=== PATIENT | female | born 1990 | race Caucasian/White ===

== ENCOUNTER 2018-07-22 13:11 | Emergency (ER) | payer OTHER ==
[2018-07-22 13:40] VITALS: RESP 18; TEMP 98.6; O2SAT 100
--- NOTE | 2018-07-22 13:45 | C.PDOC ---
History Of Present Illness 28 y/o female patient with no significant medical history presents to the ED with c/o left sided face numbness starting 3 hours [employer]. Patient denies syncope, lightheadedness, dizziness, LOC or any other associated symptoms. Time Seen by Provider: 07/22/18 13:42 Chief Complaint (Nursing): Weakness/Neurological Deficit History Per: Patient History/Exam Limitations: no limitations Onset/Duration Of Symptoms: Hrs (3) Current Symptoms Are (Timing): Still Present Associated Symptoms Preceding Syncopal Episode: denies: Lightheadedness, Vertigo Possible Causative Factor(s): denies: Vertigo, Lightheaded W/Standing - Symptoms Of CVA Character Of Deficits: Face: Weakness Past Medical History Reviewed: Historical Data, Nursing Documentation, Vital Signs Vital Signs: Last Vital Signs Temp 98.6 F 07/22/18 16:05 Pulse 84 07/22/18 16:05 Resp 18 07/22/18 16:05 BP 108/61 07/22/18 16:05 Pulse Ox 100 07/22/18 16:05 - Medical History PMH: No Chronic Diseases Family History: States: No Known Family Hx - Social History Hx Tobacco Use: No Hx Alcohol Use: No Hx Substance Use: No - Immunization History Hx Tetanus Toxoid Vaccination: No Hx Influenza Vaccination: No Hx Pneumococcal Vaccination: No Review Of Systems Constitutional: Negative for: Fever, Chills Cardiovascular: Negative for: Chest Pain Respiratory: Negative for: Shortness of Breath Neurological: Positive for: Numbness (left sided facial numbness). Negative for : Change in Speech, Confusion, Headache, Dizziness Physical Exam - Physical Exam Appears: Non-toxic, No Acute Distress Skin: Warm, Dry Head: Atraumatic, Normacephalic Eye(s): bilateral: PERRL, EOMI Oral Mucosa: Moist Chest: Symmetrical Cardiovascular: Rhythm Regular, No Murmur Respiratory: Normal Breath Sounds, No Rales, No Rhonchi, Other Back: No CVA Tenderness Extremity: Normal ROM Extremity: Bilateral: Atraumatic Neurological/Psych: Oriented x3, Normal Speech, Normal Motor (Motor function 5/ 5.), Other (Decrease sensation to the left side of face. No pronator drift. Alert, no gross focal deficit.) ED Course And Treatment - Laboratory Results Result Diagrams: 07/22/18 13:48 07/22/18 13:48 ECG: Interpreted By Me ECG Rhythm: Sinus Rhythm Interpretation Of ECG: Normal Sinus Rhythm. 81 bpm. Rate From EC O2 Sat by Pulse Oximetry: 100 (RA) Pulse Ox Interpretation: Normal - Other Rad CXR X-Ray: Read By Radiologist Interpretation: IMPRESSION: No focal consolidation, significant pleural effusion, or definite pneumothorax identified. - CT Scan/US CT Head Other Rad Studies (CT/US): Radiology Report Reviewed CT/US Interpretation: FINDINGS: HEMORRHAGE: No intracranial hemorrhage. BRAIN : No mass effect or edema. No atrophy or chronic microvascular ischemic changes.Please note that MRI with diffusion imaging is more sensitive in the detection of acute ischemic event. VENTRICLES: No hydrocephalus. CALVARIUM: Unremarkable. PARANASAL SINUSES: Unremarkable as visualized. No significant inflammatory changes. MASTOID AIR CELLS: Unremarkable as visualized. No inflammatory changes. OTHER FINDINGS: None. IMPRESSION: No acute intracranial pathology identified. Findings discussed with Dr. Damon on at 1:57 p.m. Medical Decision Making Medical Decision Making: Impression: 28 year old female patient with left sided facial numbness Differential Diagnosis included but are not limited to: Rule out Stroke Plan: CT Head EKG Labs CXR 1400: Pending Neurology Consultation -- Reassess and disposition: 1440: Mirna Bey, neurologist on-call was consulted, who recommends cancelling code-stroke. Progress Note: 1548: During re-evaluation, patient states that she feels better and symptoms have resolved. Patient was advised to follow up with PCP and return to the ED, if symptoms worsen or persist. Disposition - Disposition Referrals: Arnol Patten MD [Staff Provider] - Disposition: HOME/ ROUTINE Disposition Time: 16:05 Condition: GOOD Additional Instructions: Return to the ED if symptom persists and call Dr Patten's office for an appointment. Instructions: Paresthesias (DC) Forms: [employer] (Botswanan) - Clinical Impression Clinical Impression: Numbness of face - Scribe Statement The provider has reviewed the documentation as recorded by the Leora Alexis Provider Attestation: All medical record entries made by the Daniaibmarybeth were at my direction and personally dictated by me. I have reviewed the chart and agree that the record accurately reflects my personal performance of the history, physical exam, medical decision making, and the department course for this patient. I have also personally directed, reviewed, and agree with the discharge instructions and disposition.
[2018-07-22 13:54] LABS: BASO # 0.1 K/uL (0.0-0.2); BASO % 0.7 % (0.0-2.0); EOS # 0.1 K/uL (0.0-0.7); HEMOGLOBIN 13.3 g/dL (11.0-16.0); LYMPH # 2.9 K/uL (1.0-4.3); LYMPH % 30.3 % (20.0-40.0); MEAN CELL VOLUME 86.6 fL (81.0-99.0); MEAN CORPUSCULAR HGB CONC 33.5 g/dL (33.0-37.0); MEAN PLATELET VOLUME 9.5 fL (7.2-11.7); MONO # 0.5 K/uL (0.0-0.8); MONO % 5.6 % (0.0-10.0); NEUT % 62.4 % (50.0-75.0); RBC 4.59 Mil/uL (3.80-5.20); RED CELL DISTRIBUTION WIDTH 13.3 % (11.5-14.5); WHITE BLOOD COUNT 9.7 K/uL (4.8-10.8)
[2018-07-22 14:01] LABS: PROTHROMBIN TIME 11.4 SECONDS (9.7-12.2)
--- NOTE | 2018-07-22 14:03 | CT ---
Date of service: 07/22/2018 PROCEDURE: CT HEAD WITHOUT CONTRAST. HISTORY: Code Stroke COMPARISON: None available. TECHNIQUE: Axial computed tomography images were obtained through the head/brain without intravenous contrast. Radiation dose: Total exam DLP = 731.08 mGy-cm. This CT exam was performed using one or more of the following dose reduction techniques: Automated exposure control, adjustment of the mA and/or kV according to patient size, and/or use of iterative reconstruction technique. FINDINGS: HEMORRHAGE: No intracranial hemorrhage. BRAIN: No mass effect or edema. No atrophy or chronic microvascular ischemic changes.Please note that MRI with diffusion imaging is more sensitive in the detection of acute ischemic event. VENTRICLES: No hydrocephalus. CALVARIUM: Unremarkable. PARANASAL SINUSES: Unremarkable as visualized. No significant inflammatory changes. MASTOID AIR CELLS: Unremarkable as visualized. No inflammatory changes. OTHER FINDINGS: None. IMPRESSION: No acute intracranial pathology identified. Findings discussed with Dr. Damon on 07/22/18 at 1:57 p.m.
[2018-07-22 14:21] LABS: ALB/GLOB RATIO 1.3 (1.0-2.1); ALBUMIN 4.5 g/dL (3.5-5.0); ALT/SGPT 24 U/L (9-52); AST/SGOT 24 U/L (14-36); BLOOD UREA NITROGEN 13 mg/dL (7-17); CALCIUM 9.6 mg/dl (8.6-10.4); GFR NON-AFRICAN AMERICAN > 60; HDL CHOLESTEROL 57 mg/dL (30-70)
[2018-07-22 14:32] LABS: LDL CHOLESTEROL 67 mg/dL (0-129)
--- NOTE | 2018-07-22 14:34 | RAD ---
HISTORY: Code Stroke COMPARISON: None available. TECHNIQUE: Chest, one view. FINDINGS: LUNGS: No focal consolidation. Please note that chest x-ray has limited sensitivity for the detection of pulmonary masses. PLEURA: No significant pleural effusion identified. No definite pneumothorax . CARDIOVASCULAR: The cardiomediastinal silhouette appears within normal limits of size. OSSEOUS STRUCTURES: No acute osseous abnormality identified. VISUALIZED UPPER ABDOMEN: Unremarkable. OTHER FINDINGS: None. IMPRESSION: No focal consolidation, significant pleural effusion, or definite pneumothorax identified.
[2018-07-22 16:08] VITALS: BP 108/61; PULSE 84
--- NOTE | 2018-07-23 00:10 | CARD ---
APPROVED REPORT Date of service: 07/22/2018 EKG Measurement Heart [id number] <Conclusion> Normal sinus rhythm Normal ECG
== END 2018-07-22 16:15 | disposition home or self-care (01) ==
LOC: C.ER 13:11
DX: R20.2 Paresthesia of skin (principal)

== ENCOUNTER 2018-09-30 17:22 | Emergency (ER) | payer OTHER ==
[2018-09-30 17:54] VITALS: RESP 18; TEMP 98.2; O2SAT 98
[2018-09-30 18:21] LABS: HCG,QUALITATIVE URINE POSITIVE (NEGATIVE)
[2018-09-30 18:24] LABS: URINE BILIRUBIN NEGATIVE (NEGATIVE); URINE BLOOD NEGATIVE (NEGATIVE); URINE COLOR YELLOW (YELLOW); URINE GLUCOSE (UA) NORMAL (Normal); URINE LEUKOCYTE ESTERASE 3+ Leu/uL (Negative); URINE PROTEIN NEGATIVE (NEGATIVE)
--- NOTE | 2018-09-30 19:11 | C.PDOC ---
History Of Present Illness 28 year old female with PMHx of PCOS who is approximately 10 weeks by LMP was sent to ED from [facility] for evaluation of lower abdominal pain that began 2 weeks ago. Pain is located in bilateral lower abdomen, described as cramping, and rated 7/10. She went to the clinic today for the lower abdominal pain and was told she was . Her LMP was approximately July 21. Patient denies nausea, vomiting, diarrhea, fever, chills, vaginal spotting, dysuria, hematuria, frequency, and generalized weakness. Time Seen by Provider: 09/30/18 18:03 Chief Complaint (Nursing): Abdominal Pain Past Medical History Vital Signs: Last Vital Signs Temp 98.2 F 09/30/18 17:50 Pulse 87 09/30/18 17:50 Resp 18 09/30/18 17:50 BP 108/72 09/30/18 17:50 Pulse Ox 98 09/30/18 17:50 - Medical History Other PMH: PCOS Surgical History: No Surg Hx Family History: States: No Known Family Hx - Social History Hx Tobacco Use: No Hx Alcohol Use: No Hx Substance Use: No - Immunization History Hx Tetanus Toxoid Vaccination: No Hx Influenza Vaccination: No Hx Pneumococcal Vaccination: No Review Of Systems Constitutional: Negative for: Fever, Chills, Sweats Cardiovascular: Negative for: Chest Pain, Palpitations Respiratory: Negative for: Cough, Shortness of Breath, SOB with Excertion Gastrointestinal: Positive for: Abdominal Pain. Negative for: Nausea, Vomiting, Constipation, Melena, Hematochezia, Hematemesis Genitourinary: Negative for: Dysuria, Frequency, Hematuria Neurological: Negative for: Weakness, Numbness, Confusion Physical Exam - Physical Exam Appears: Non-toxic, No Acute Distress Skin: Normal Color, Warm, Dry Head: Atraumatic, Normacephalic Eye(s): bilateral: Normal Inspection, PERRL, EOMI Nose: Normal Oral Mucosa: Moist Throat: Normal Neck: Normal, Normal ROM Cardiovascular: Rhythm Regular, No Rhythm Irregular, No Edema, No Friction Rub, No Murmur, No JVD Respiratory: Normal Breath Sounds, No Decreased Breath Sounds, No Rales, No Rhonchi, No Stridor, No Wheezing Gastrointestinal/Abdominal: Bowel Sounds, Soft, No Tenderness, No Guarding, No Rebound, Other (No CVA tenderness) Extremity: Normal ROM, No Tenderness, No Pedal Edema, No Calf Tenderness, Capillary Refill (normal) Pulses: Left Radial: Normal, Right Radial: Normal Neurological/Psych: Oriented x3, Normal Speech, Normal Cranial Nerves, Normal Motor ED Course And Treatment O2 Sat by Pulse Oximetry: 98 Medical Decision Making Medical Decision Making: Plan: BHC.27 UA: 3+ Leuk esterase Transvaginal US: No IUP seen, thickened endometrium, L ovarian complex cyst possibly corpus luteal cyst. Finding suspicious for missed /embryonic demise. Possible missed or too early in to be seen on US. Patient is to return in 48 hours for repeat BHCG. Disposition - Disposition Disposition: HOME/ ROUTINE Disposition Time: 22:22 Condition: STABLE Additional Instructions: You are to return to the emergency room within 48 Hours for repeat test. You are being discharged with the following medication: Acetaminophen 500mg take 2 tablets every 6 hours as needed for pain Nitrofurantoin 100mg take one capsule by mouth twice daily vitamins take one by mouth daily Return to the emergency room immediately for severe pain. Debe regresar a la austen de emergencias en 48 horas para repetir la prueba de embarazo. Usted va a recibir recetas para el siguiente medicamento: Acetaminophen 500mg tome 2 tabletas cada 6 horas segn sea necesario para el dolor Nitrofurantona 100 mg mirna tisha cpsula por va oral dos veces al da Las vitaminas prenatales se amy tisha por la boca diariamente. Regrese a la austen de emergencias inmediatamente para el dolor samantha. Prescriptions: Acetaminophen [Tylenol Extra Strength] 1,000 mg PO Q6 PRN #100 tablet PRN Reason: FEVER OR PAIN Nitrofurantoin Macrocrystals [Macrobid] 1 cap PO BID #14 cap 21/Iron Fu/Folic Acid [ Complete Caplet] 1 each PO DAILY #1 packet Instructions: Urinary Tract Infections in Adults Forms: [employer] (Welsh) Print Language: SPA - Clinical Impression Clinical Impression: Abdominal pain during , UTI (urinary tract infection)
[2018-09-30 22:37] VITALS: BP 99/61; PULSE 83
--- NOTE | 2018-10-01 10:28 | US ---
Date of service: 09/30/2018 HISTORY: 10 weeks preg pelvic pain COMPARISON: None available. TECHNIQUE: Transabdominal and transvaginal pelvic ultrasound was performed. FINDINGS: UTERUS: Measures 7.9 x 4.5 x 5.0 cm. Retroverted, normal in size and appearance. No fibroid or other mass lesion seen. ENDOMETRIUM: Measures 1.9 mm in diameter. The central endometrial echo complex is thick without evidence for central vascularity. CERVIX: No cervical abnormality identified. RIGHT OVARY: Measures 3.0 x 1.8 x 2.3 cm. No solid mass. Normal flow. LEFT OVARY: Measures 4.7 x 2.8 x 3.7 cm. No solid mass. Normal flow. There is a 1.9 x 1.2 x 1.5 cm hypoechoic lesion likely a complicated cyst. FREE FLUID: There is small amount of free fluid in the cul de sac . OTHER FINDINGS: None. IMPRESSION: No evidence of intrauterine gestational sac. Thick central endometrial echo complex without evidence for central vascularity. 1.9 cm complicated cyst in the left ovary. A preliminary report was provided by [facility].
== END 2018-09-30 22:45 | disposition home or self-care (01) ==
LOC: C.ER 17:22
DX: O23.41 Unspecified infection of urinary tract in pregnancy, first trimester (principal); O26.891 Other specified pregnancy related conditions, first trimester; Z3A.10 10 weeks gestation of pregnancy; R10.30 Lower abdominal pain, unspecified